=== PATIENT | male | born 1995 | race Caucasian/White ===

== ENCOUNTER 2019-04-06 13:43 | Emergency (ER) | payer OTHER ==
[~2019-04-06] VITALS: Ht 162.6 cm; Wt 61.7 kg
[2019-04-06 13:45] VITALS: BP 127/70
--- NOTE | 2019-04-06 13:50 | NUR ---
pt amb to bed 02 steady gait
--- NOTE | 2019-04-06 13:51 | NUR ---
C/O R FACIAL PAIN & SWELLING AT [facility] X 4 DAYS. STATES FOOD PIERCED GUMS ON RT LOWER SIDE 4 DAYS AGO PRIOR TO SYMPTOM ONSET. NO ACTIVE BLEEDING. NO DIFFICULTY BREATHING. MED HX: DENIES
[2019-04-06] MEDS ORDERED: KETOROLAC 30 MG/ML VIAL IM ONE (14:15)
--- NOTE | 2019-04-06 14:40 | NUR ---
Patient discharged with v/s stable. Written and verbal after care instructions given and explained. Patient alert, oriented and verbalized understanding of instructions. Ambulatory with steady gait. All questions addressed prior to discharge. ID band removed. Patient advised to follow up with PMD. Rx of NORCO, AUGMENTIN, IBUPROFEN given. Patient educated on indication of medication including possible reaction and side effects. Opportunity to ask questions provided and answered.
[2019-04-06 14:41] VITALS: BP 127/70
== END 2019-04-06 14:40 | disposition home or self-care (01) ==
LOC: MED 13:43
DX: K04.7 Periapical abscess without sinus (principal)
CPT/HCPCS: 96372; 99283; J1885

== ENCOUNTER 2021-11-21 13:32 | Emergency (ER) | payer OTHER ==
[~2021-11-21] VITALS: Ht 162.6 cm; Wt 61.2 kg
[2021-11-21 13:37] VITALS: BP 126/81
--- NOTE | 2021-11-21 13:42 | NUR ---
26/M WALKED IN C/O LEFT SHOULDER DISCOMFORT UPON INHALING. DENIES FALL OR TRAUMA. AAOX4, AMBULATORY. VITALS STABLE. NKA PMH: ADHD
--- NOTE | 2021-11-21 14:25 | NUR ---
BLOOD DRAWN, EKG DONE
[2021-11-21 14:28] LABS: BASOPHILS # (AUTO) 0.1 K/uL (0.00-0.22); BASOPHILS % (AUTO) 0.6 % (0.0-2.0); EOSINOPHILS % (AUTO) 0.4 % (0.0-4.0); HEMATOCRIT 44.4 % (36-52); HEMOGLOBIN 14.9 g/dL (12.0-18.0); LYMPHOCYTES # (AUTO) 2.6 K/uL (2.0-11.5); MEAN CORPUSCULAR HEMOGLOBIN 30 pg (27-31); MEAN CORPUSCULAR HGB CONC 34 g/dL (33-37); MONOCYTES # (AUTO) 0.7 K/uL (0.8-1.0); NEUTROPHILS # (AUTO) 6.4 K/uL (1.8-7.7); PLATELET COUNT (AUTO) 205 K/uL (140-450); RED BLOOD CELL COUNT(AUTO) 4.93 MIL/uL (4.20-6.10); RED CELL DISTRIBUTION WIDTH 13.6 % (11.6-13.7); WHITE BLOOD COUNT (AUTO) 9.8 K/uL (4.8-10.8)
[2021-11-21] MEDS ORDERED: ACETAMINOPHEN EXTRA STRENGTH 500 MG TAB PO ONE (14:35)
[2021-11-21] MEDS ORDERED: IBUPROFEN 600 MG TAB PO ONE (14:35)
[2021-11-21 14:52] LABS: ANION GAP 11.7 (8-16); CARBON DIOXIDE 27.1 mmol/L (21-32); CHLORIDE 105 mmol/L (98-107); CREATININE 0.9 mg/dL (0.6-1.3); GFR ARICAN-AMERICAN 130 mL/min (>90); GLUCOSE 122 mg/dL (74-106); POTASSIUM 3.8 mmol/L (3.5-5.1); SODIUM SERUM 140 mmol/L (136-145); TOTAL BILIRUBIN 0.4 mg/dL (0.0-1.0); UREA NITROGEN, BLOOD 7 mg/dL (7-18)
[2021-11-21 15:12] LABS: ASPARTATE AMINOTRANSFERASE 13 U/L (15-37)
[2021-11-21 16:08] VITALS: BP 121/76
--- NOTE | 2021-11-21 16:08 | NUR ---
Patient discharged with v/s stable. Written and verbal after care instructions given and explained. Patient verbalized understanding. Ambulatory with steady gait. All questions addressed prior to discharge. Advised to follow up with PMD.
== END 2021-11-21 16:08 | disposition home or self-care (01) ==
LOC: MED 13:32
DX: R07.81 Pleurodynia (principal); F12.90 Cannabis use, unspecified, uncomplicated
CPT/HCPCS: 36415; 71045; 80053; 84484; 85025; 85379; 93005; 99285

== ENCOUNTER 2022-04-21 10:46 | Emergency (ER) | payer OTHER ==
[~2022-04-21] VITALS: Ht 152.4 cm; Wt 61.7 kg
[2022-04-21 10:52] VITALS: BP 144/85
--- NOTE | 2022-04-21 11:00 | NUR ---
ASSUMED PATIENT CARE, NURSING ASSESSMENT COMPLETED.
[2022-04-21] MEDS ORDERED: ONDANSETRON 4 MG ODT PO ONE (11:05)
[2022-04-21] MEDS ORDERED: ONDA8TAB87 PO (12:00)
[2022-04-21 12:08] VITALS: BP 125/85
--- NOTE | 2022-04-21 12:09 | NUR ---
DISPO AND MEDICAL DECISION, DC HOME WITH E-RX, AND AFTERCARE INSTRUCTIONS, UNDERSTOOD BY PATIENT WELL, DENIES NAUSEA AT THIS TIME.
== END 2022-04-21 12:08 | disposition home or self-care (01) ==
LOC: MED 10:46
DX: R11.0 Nausea (principal)
CPT/HCPCS: 99283; Q0162